=== PATIENT | female | born 1950 | race Caucasian/White ===

== ENCOUNTER 2022-03-13 08:44 | Emergency (ER) | payer OTHER, MEDICARE ==
[2022-03-13 08:57] VITALS: BP 127/59; PULSE 63; TEMP 97.7; BMI 21.1
[2022-03-13] MEDS ORDERED: DIPHTH,PERTUSS(ACELL),TET 0.5 ML DISP.SYRIN IM ONE (09:01)
[2022-03-13] MEDS ORDERED: ACETAMINOPHEN 500 MG TABLET (FP) PO ONE (09:02)
[2022-03-13] MEDS ORDERED: CEPHALEXIN MONOHYDRATE 500 MG CAPSULE (UD) PO ONE (11:20)
[2022-03-13] MEDS ORDERED: CEPHALEXIN MONOHYDRATE 500 MG CAPSULE (UD) ONE (11:23)
== END 2022-03-13 11:35 | disposition home or self-care (01) ==
LOC: FER 08:44
PROC: 0HQ1XZZ Repair Face Skin, External Approach (ICD-10-PCS; principal; 2022-03-13)
PROC: 3E0234Z Introduction of Serum, Toxoid and Vaccine into Muscle, Percutaneous Approach (ICD-10-PCS; 2022-03-13)
DX: S01.412A Laceration without foreign body of left cheek and temporomandibular area, initial encounter (principal); S02.612A Fracture of condylar process of left mandible, initial encounter for closed fracture; W01.0XXA Fall on same level from slipping, tripping and stumbling without subsequent striking against object, initial encounter
CPT/HCPCS: 12001-25; 70450-TC; 70486-TC; 72125-TC; 73130-TC-LT-FY; 90471; 90715; 99285-25